=== PATIENT | male | born 1945 | race Two or more races ===

== ENCOUNTER → 2020-01-29 06:46 | Day surgery (SDC) | payer MEDICARE, BC ==
[~2020-01-29 06:46] MED LIST: Heparin 2 UNITS/ML IVPREMIX* 2,000 ML IV ONE; Heparin(*) 1000 UNIT/ML 10 ML VIAL CATH LAB IV ONE; Iohexol 350 (CONTRAST) 200 ML MDV IV ONE; Lidocaine 1% INJ* 10 MG/ML 30 ML SDV ONE; Midazolam* 1 MG/ML 5 ML VIAL (5 MG) ONE; fentaNYL* 50 MCG/ML 2 ML VIAL (100 MCG VIAL) ONE
[2020-01-29 07:53] LABS: Hematocrit 38 % (42-52); Hemoglobin 12.8 g/dL (14.0-18.0); Mean Corpuscular HGB Conc 33 g/dL (31-36); Mean Corpuscular Hemoglobin 29 pg (27-31); Mean Corpuscular Volume 87 fL (80-94); Mean Platelet Volume 8.3 fL (7.4-10.4); Platelet Count 225 10^3/uL (150-450); Red Blood Count 4.41 10^6 /uL (4.18-5.48); Red Cell Distribution Width 15 % (10-15); White Blood Count 6.7 10^3/uL (3.5-10.8)
[2020-01-29 08:00] LABS: INR 1.23 (0.82-1.09)
[2020-01-29 08:08] LABS: BUN/Creatinine Ratio 20.4 (8-20); Calcium 8.8 mg/dL (8.6-10.3); EGFR African American 95.8 (>60); EGFR Non-African American 79.2 (>60); Potassium 3.8 mmol/L (3.5-5.0)
[2020-01-29 12:53] VITALS: BP 153/76
== END | disposition home or self-care (01) ==
LOC: CHICATH 06:46
PROVIDERS: ATTEND Radiology Diagnostic Radiology
DX: I70.213 Atherosclerosis of native arteries of extremities with intermittent claudication, bilateral legs (principal); I48.91 Unspecified atrial fibrillation; R22.43 Localized swelling, mass and lump, lower limb, bilateral; M25.562 Pain in left knee; Z79.01 Long term (current) use of anticoagulants; I10 Essential (primary) hypertension; Z96.652 Presence of left artificial knee joint; Z87.891 Personal history of nicotine dependence
CPT/HCPCS: 36415; 75716; 75736; 76937; 80048; 85027; 85610; 99156; 99157; C1760; C1769; C1887; C1894; J1644; J2250; J3010

== ENCOUNTER → 2020-02-12 06:33 | Day surgery (SDC) | payer MEDICARE, BC ==
[~2020-02-12 06:33] MED LIST changes: +Clopidogrel TAB* 75 MG ONE; +Clopidogrel TAB* 75 MG PO ONE; +Iodixanol 320 (CONTRAST) 100 ML SDV ONE; +VERAPAMIL 2.5 MG/ML 2 ML VIAL ** 5 mg/2 ml ONE; +ceFAZolin* 2 GM* ONE DOSE (Duplex) IVPB; +nitroGLYCERIN DRIP* 25,000 MCG/250 ML BTL ONE
[2020-02-12 08:07] LABS: ABS Eosinophils 0.2 10^3/ul (0-0.6); ABS Lymphocytes 1.1 10^3/ul (1.0-4.8); ABS Monocytes 0.6 10^3/ul (0-0.8); ABS Neutrophils 5.2 10^3/ul (1.5-7.7); Eosinophil % 2.2 %; Hematocrit 41 % (42-52); Hemoglobin 13.5 g/dL (14.0-18.0); Lymphocyte % 15.9 %; Mean Corpuscular HGB Conc 33 g/dL (31-36); Mean Corpuscular Hemoglobin 29 pg (27-31); Mean Corpuscular Volume 88 fL (80-94); Mean Platelet Volume 8.9 fL (7.4-10.4); Platelet Count 234 10^3/uL (150-450); Red Blood Count 4.63 10^6 /uL (4.18-5.48); Red Cell Distribution Width 15 % (10-15); White Blood Count 7.2 10^3/uL (3.5-10.8)
[2020-02-12 08:10] LABS: INR 1.22 (0.82-1.09)
[2020-02-12 08:18] LABS: BUN/Creatinine Ratio 19.8 (8-20); EGFR African American 92.4 (>60); EGFR Non-African American 76.4 (>60); Potassium 3.8 mmol/L (3.5-5.0)
--- NOTE | 2020-02-12 14:09 | PN ---
Progress Note - Progress Note Date of Service: 02/12/20 SOAP: Subjective: Denies pain at left groin, left leg or left ankle. Objective: Selected Entries 02/12/20 13:07 Pulse Rate 66 Heart Rate 71 Respiratory 14 Rate Blood Pressure 158/94 (mmHg) Blood Pressure 124 Mean O2 Sat by Pulse 96 Oximetry NAD, AAO x 3 Left groin and LLQ is soft, nontender Dressing is C/D/I 2+ pulse at left [employer] 1+ pulse at left pop No tenderness at left popliteal fossa Left medial ankle is soft, nontender Dressing is CDI Motor function in left leg is grossly intact Assessment: 75 YOM status post antegrade left common femoral arteriotomy, left retrograde posterior tibial arteriotomy, left leg angiogram, revascularization of 100% occluded left popliteal artery, serial balloon angioplasty of left SFA & popliteal and percutaneous closure of left common femoral arteriotomy. Plan: 1. DC to home. 2. Plavix 75 mg PO every other day x 60 days. 3. Rx for physical therapy and compressions stockings provide to Maddie. 4. Follow up will include Interventional Radiology clinic visit and [facility] in 1 month.
[2020-02-12 14:40] VITALS: BP 168/89
== END | disposition home or self-care (01) ==
LOC: CHICATH 06:33
PROVIDERS: ATTEND Radiology Diagnostic Radiology
DX: I70.213 Atherosclerosis of native arteries of extremities with intermittent claudication, bilateral legs (principal); I10 Essential (primary) hypertension; I25.10 Atherosclerotic heart disease of native coronary artery without angina pectoris; I48.91 Unspecified atrial fibrillation; M17.11 Unilateral primary osteoarthritis, right knee; R35.0 Frequency of micturition; M54.9 Dorsalgia, unspecified; R22.43 Localized swelling, mass and lump, lower limb, bilateral; Z79.82 Long term (current) use of aspirin; Z87.891 Personal history of nicotine dependence
CPT/HCPCS: 36415; 76937; 80048; 85025; 85347; 85610; 99156; 99157; A9270-GY; C1725; C1760; C1769; C1887; C1894; J0690; J1644; J2250; J3010